=== PATIENT | male | born 1985 | race Caucasian/White ===

== ENCOUNTER 2016-09-28 11:39 | Emergency (ER) | payer SELFPAY ==
[~2016-09-28] VITALS: Ht 180.3 cm; Wt 90.7 kg
[~2016-09-28 11:39] MED LIST: ALBUTEROL0.09 MG/A2 IH; ANALPRAM HC TP; ATARAX,VISTARIL50 MG PO; BACTRIM DS 8001 TA1 PO; CIPRO500 MG PO; COLACE100 MG PO; DOXYCYCLINE MO100 MG PO; FLONASE0.05 MG/AC NS; HYDROCODONE BIT1 T11 PO; IBU800 M1 PO; INDOCIN50 MG PO; INDOMETHACIN50 MG PO; MEDROL DOSEPAK4 MG PO; NAPROSYN500 MG PO; NKHM; NKHM PO; POLYTRIM 1000010 M1 OPH; PREDNISONE20 MG PO; PROCTOFOAM-HC 11 FOA RC; ROBAXIN750 MG PO; ROBITUSSIN AC 110 ML PO; TESSALON PERLE100 M1 PO; ULTRAM50 MG PO; VOLTAREN50 M1 PO; ZITHROMAX Z PA250 MG PO; ZITHROMAX Z-PA250 MG PO
[2016-09-28] MEDS ORDERED: TOBREX OPHTH S2.5 ML OPH (11:53)
== END 2016-09-28 12:06 | disposition home or self-care (01) ==
LOC: ED 11:39
DX: S05.02XA Injury of conjunctiva and corneal abrasion without foreign body, left eye, initial encounter (principal); T15.02XA Foreign body in cornea, left eye, initial encounter; F17.210 Nicotine dependence, cigarettes, uncomplicated; Z88.0 Allergy status to penicillin; R03.0 Elevated blood-pressure reading, without diagnosis of hypertension; X58.XXXA Exposure to other specified factors, initial encounter; Y93.89 Activity, other specified; Y92.9 Unspecified place or not applicable; Y99.9 Unspecified external cause status

== ENCOUNTER 2016-11-25 09:54 | Emergency (ER) | payer SELFPAY ==
[~2016-11-25] VITALS: Ht 180.3 cm; Wt 90.7 kg
[~2016-11-25 09:54] MED LIST changes: +TOBREX OPHTH S2.5 ML OPH
[2016-11-25] MEDS ORDERED: Motrin,Rufen800 MG PO (10:07)
[2016-11-25] MEDS ORDERED: CLINDAMYCIN HC300 MG PO (10:07)
== END 2016-11-25 10:12 | disposition home or self-care (01) ==
LOC: ED 09:54
DX: K08.89 Other specified disorders of teeth and supporting structures (principal); F17.200 Nicotine dependence, unspecified, uncomplicated; Z88.0 Allergy status to penicillin; Z90.89 Acquired absence of other organs

== ENCOUNTER 2017-05-09 19:34 | Emergency (ER) | payer SELFPAY ==
[~2017-05-09] VITALS: Wt 95.3 kg
[~2017-05-09 19:34] MED LIST changes: +CLINDAMYCIN HC300 MG PO; +Motrin,Rufen800 MG PO
== END 2017-05-09 23:04 | disposition home or self-care (01) ==
LOC: ED 19:34
DX: T50.991A Poisoning by other drugs, medicaments and biological substances, accidental (unintentional), initial encounter (principal); F17.210 Nicotine dependence, cigarettes, uncomplicated; F10.10 Alcohol abuse, uncomplicated; Z88.0 Allergy status to penicillin; Z91.041 Radiographic dye allergy status; Z90.89 Acquired absence of other organs; Y92.89 Other specified places as the place of occurrence of the external cause

== ENCOUNTER → 2019-12-08 | Outpatient (CLI) | payer OTHER ==
[2019-12-08 14:05] LABS: BASO % 0.5 % (0.0-1.0); EOS # 0.1 10*3/uL (0.0-0.4); EOS % 0.6 % (1.0-4.0); HEMATOCRIT 48.4 % (42.0-52.0); LYMPH # 2.3 10*3/uL (1.3-4.4); LYMPH % 27.3 % (27.0-41.0); MEAN CELL VOLUME 96.8 fl (80.0-94.0); MEAN CORPUSCULAR HGB 33.2 pg (27.0-31.0); MEAN CORPUSCULAR HGB CONC 34.3 g/dl (33.0-37.0); MEAN PLATELET VOLUME 9.9 fl (9.6-12.3); MONO # 0.6 10*3/uL (0.1-1.0); MONO % 6.9 % (3.0-9.0); NEUT # 5.3 10*3/uL (2.3-7.9); NEUT % 64.5 % (47.0-73.0); PLATELET COUNT AUTOMATED 252 10*3/uL (130-400); RED CELL DISTRI WIDTH 13.2 % (0-14.5); WHITE BLOOD COUNT 8.3 10*3/uL (4.8-10.8)
[2019-12-08 14:21] LABS: URINE AMPHETAMINES < 1000 (1000ng/ml); URINE BARBITURATES < 200 (200ng/ml); URINE BENZODIAZEPINES < 200 (200ng/ml); URINE CANNABINOIDS (THC) < 50 (50ng/ml); URINE COCAINE < 300 (300ng/ml); URINE METHADONE < 300 (300ng/ml); URINE OPIATES < 300 (300ng/ml)
[2019-12-08 14:23] LABS: URINE PHENCYCLIDINE < 25 (25ng/ml)
[2019-12-08 14:23] LABS: ALBUMIN 4.3 gm/dl (3.1-4.5); BILIRUBIN, DIRECT 0.2 mg/dL (0.0-0.2); BUN 19 mg/dl (7-24); CHLORIDE 106 mmol/L (98-107); CREATININE 1.01 mg/dL (0.70-1.30); POTASSIUM 3.8 mmol/L (3.5-5.1); SGOT/AST 52 IU/L (3-35); SGPT/ALT 131 U/L (12-78); SODIUM 138 mmol/L (136-145)
[2019-12-08 14:24] LABS: ALKALINE PHOSPHATASE 72 U/L (45-117); TOTAL PROTEIN 8.8 gm/dL (6.4-8.2)
[2019-12-08 14:39] LABS: VITAMIN D, 25-HYDROXY 16.3 ng/mL (30-100)
[2019-12-08 14:57] LABS: BILIRUBIN NEGATIVE (NEGATIVE); BLOOD NEGATIVE (NEGATIVE); CLARITY CLEAR (CLEAR); COLOR YELLOW (YELLOW); GLUCOSE NEGATIVE (NEGATIVE); KETONE NEGATIVE (NEGATIVE); LEUKO ESTERASE NEGATIVE (NEGATIVE); NITRITE NEGATIVE (NEGATIVE); UROBILINOGEN 0.2 E.U./dl (0.2-1.0)
[2019-12-08 14:58] LABS: BACTERIA TRACE; MUCOUS TRACE
[2019-12-09 08:12] LABS: HEP B CORE AB, IGM Negative (Negative); HEPATITIS B SURFACE AG Negative (Negative)
[2019-12-09 14:04] LABS: HEPATITIS C VIRUS ANTIBODY >11.0 s/co (0.0-0.9)
== END | disposition home or self-care (01) ==
LOC: LAB 13:44
PROVIDERS: Physician Assistant
DX: Z51.81 Encounter for therapeutic drug level monitoring (principal); Z79.899 Other long term (current) drug therapy

== ENCOUNTER 2023-04-19 09:39 | Emergency (ER) | payer OTHER ==
[~2023-04-19] VITALS: Ht 180.3 cm; Wt 93.0 kg
[2023-04-19] MEDS ORDERED: CLEOCIN HCL150 MG PO (10:31)
[2023-04-19] MEDS ORDERED: Motrin,Rufen800 MG PO (10:31)
== END 2023-04-19 10:55 | disposition home or self-care (01) ==
LOC: ED 09:39
DX: K08.89 Other specified disorders of teeth and supporting structures (principal); Z88.0 Allergy status to penicillin; Z91.041 Radiographic dye allergy status; Z90.89 Acquired absence of other organs; Z98.890 Other specified postprocedural states; F17.210 Nicotine dependence, cigarettes, uncomplicated

== ENCOUNTER 2023-08-03 08:40 | Emergency (ER) | payer OTHER ==
[~2023-08-03] VITALS: Ht 180.3 cm; Wt 99.8 kg
[~2023-08-03 08:40] MED LIST changes: +CLEOCIN HCL150 MG PO
[2023-08-03] MEDS ORDERED: CLEOCIN HCL300 MG PO (09:19)
== END 2023-08-03 09:29 | disposition home or self-care (01) ==
LOC: ED 08:40
DX: K08.89 Other specified disorders of teeth and supporting structures (principal); F17.210 Nicotine dependence, cigarettes, uncomplicated; Z88.0 Allergy status to penicillin; Z91.041 Radiographic dye allergy status; Z90.89 Acquired absence of other organs; Z98.890 Other specified postprocedural states